=== PATIENT | male | born 1935 | race Caucasian/White ===

== ENCOUNTER 2016-11-02 07:53 | Inpatient (IN) | payer BC ==
--- NOTE | ~2016-11-02 | DS ---
Discharge Summary [facility] [address] [facility] [place]. [address] NAME: JESUS CRUZ : 33 STATUS : DIS IN PAT#: [id number] AGE: 81 ADM/REG DATE : 11/02/16 MR#: [id number] REPORT SERV DATE: 11/06/16 DICTATED BY: BENNIE SANTOS DATE: 11/05/16 REPORT STATUS : Draft TRANSCRIBED BY: MODL DATE: 11/05/16 ADMISSION DATE: 11/02/2016 DISCHARGE DATE: 11/05/2016 PROCEDURES DONE: 1. On 11/02/2016 CT of the brain without contrast, mild to moderate atrophy. Evidence for old deep white matter ischemic changes in both hemispheres, lesional burden moderate. No acute infarct or bleed seen. Atrophy involves the hippocampal and amygdalar region, and this could certainly be several changes as a precursor to Alzheimer's diagnosis. Prior cataract surgery bilateral. 2. On 11/02/2016, ultrasound renal status post left nephrectomy. Benign right renal cyst. Aorta and vena cava, and urinary bladder normal. 3. On 11/05/2016, chest x-ray portable. Pacemaker. Shallow inspiration. No acute cardiopulmonary abnormality. CONSULT: 1. Noel Jasso M.D. for Cardiology. 2. Florian Lyons M.D. for Electrophysiology. REASON FOR ADMISSION: Bradycardia. HOSPITAL COURSE: An 81-year-old white male with past medical history of atrial fibrillation on Eliquis, hypertension, history of left renal cell carcinoma status post left nephrectomy, metastasis in the bladder, presenting with bradycardia unknown duration. The patient was admitted for bradycardia with atrial flutter. The patient was noted to have a heart rate in the 40s. Dr. Jasso was consulted from Cardiology. Question if the patient will need a pacemaker. Dr. Jasso consulted Dr. Lyons from EP. Dr. Lyons put a pacemaker on 11/05/2016. The patient had no complications. At this time, the patient was cleared from EP point of view, and will be discharged at approximately 8:00 p.m. DISPOSITION: The patient feeling fine, no complaints. ACTIVITY: As tolerated. DIET: Cardiac. INSTRUCTIONS UPON DISCHARGE: 1. The patient is to follow up with Dr. Lyons within one week's time. 2. The patient is to follow up with Cardiology within two weeks' time. 3. The patient to follow up with primary care within two weeks' time. MEDICATIONS UPON DISCHARGE: 1. [place] 5/325 mg, one tablet p.o. q.4-6 hours, dispensed 20. 2. Lotensin/hydrochlorothiazide 20/25 mg p.o. daily. 3. Zocor 20 mg p.o. q.h.s. 4. Flomax 0.4 mg p.o. q.h.s. Discharge Summary [address] [address] NAME: JESUS CRUZ : 33 STATUS : DIS IN PAT#: [id number] AGE: 81 ADM/REG DATE : 11/02/16 MR#: [id number] REPORT SERV DATE: 11/06/16 DICTATED BY: BENNIE SANTOS DATE: 11/05/16 REPORT STATUS : Draft TRANSCRIBED BY: LUIS DATE: 11/05/16 5. Norvasc 5 mg p.o. daily. 6. Eliquis 2.5 mg p.o. b.i.d. DIAGNOSES UPON DISCHARGE: 1. Bradycardia with atrial flutter secondary to sick sinus syndrome. 2. Sick sinus syndrome. 3. Atrial fibrillation. 4. History of left renal cell carcinoma with bladder metastasis. CED/LUIS Bennie Santos MD / [id number] CC: MD Stuart Shrestha M.D.
--- NOTE | ~2016-11-02 | CN ---
Consultation Report [facility] [address] [place]. [address] NAME: JESUS CRUZ : 33 STATUS : ADM IN PAT#: [id number] AGE: 81 ADM/REG DATE : 11/02/16 MR#: [id number] REPORT SERV DATE: 11/05/16 DICTATED BY: KRYSTIN JASSO DATE: 11/03/16 REPORT STATUS : Draft TRANSCRIBED BY: MODL DATE: 11/03/16 CONSULTATION DATE OF CONSULTATION: 11/03/2016 REQUESTING PHYSICIAN: Bennie Cruz MD. CHIEF COMPLAINT: Bradycardia. HISTORY OF PRESENT ILLNESS: An 81-year-old man, followed by Dr. Menchaca, known to me from prior care, has history of coronary artery disease with 04/24 MPI demonstrating moderate jeopardy and 05/25 catheterization revealing only trivial coronary artery disease, 04/29 MPI revealing only small apical jeopardy and no symptoms of angina, minimally impaired LV systolic function with 05/25 LVEF of 40-45% and 04/29 echo estimating LVEF of 40%, treated hypertension, treated hypercholesterolemia, grade 1 carotid disease without stroke, trifascicular block, moderate mitral regurgitation by echo 04/29 and atrial fibrillation 03/30 of unknown duration with [id number] score of 4 and on Eliquis. The patient converted spontaneously to sinus rhythm 04/29. The patient was sent for a stress echocardiogram by his primary physician to [facility] hospitalist yesterday and was found to have ventricular rate in the low 40s in atrial fibrillation/flutter. He denies chest pain and near delmy syncope. Dr. Smith telephoned me and we agreed to have the patient admitted. Here, the patient has remained with a ventricular rate as low as 30 while asleep and in the 40s most of the time. He continues to deny chest pain and anginal symptoms as well as heart failure symptoms. PAST MEDICAL HISTORY: 1. CAD-trivial epicardial coronary disease by catheterization 05/25 and 04/29 MPI with small apical jeopardy. 2. Minimally-impaired LV systolic function by left ventriculography and echo 04/29. 3. Hypertension. 4. Hypercholesterolemia. 5. Carotid disease-04/24 duplex with grade 1 disease; has been followed by PMD. 6. Trifascicular block. 7. Atrial fibrillation-unknown duration 03/30 with [id number] score of 4 and on Eliquis; spontaneous conversion to sinus rhythm 04/29. 8. Mitral regurgitation-moderate by 04/29 echo with normal pulmonary artery pressure. 9. Benign prostatic hypertrophy. HOME MEDICATIONS: 1. Amlodipine 5 mg daily. 2. Benazepril/hydrochlorothiazide 10/25 daily. 3. Simvastatin 20 mg daily. Consultation Report [address] [place]. [address] NAME: JESUS CRUZ : 33 STATUS : ADM IN PAT#: [id number] AGE: 81 ADM/REG DATE : 11/02/16 MR#: [id number] REPORT SERV DATE: 11/05/16 DICTATED BY: KRYSTIN JASSO DATE: 11/03/16 REPORT STATUS : Draft TRANSCRIBED BY: LUIS DATE: 11/03/16 4. Tamsulosin 0.4 mg daily. 5. Eliquis 2.5 mg b.i.d. SOCIAL HISTORY: The patient is retired from [employer]. He is , with four children and one son suddenly while serving in the [employer] in [place] at age 20. He does not smoke. FAMILY HISTORY: No first-degree relatives with history of premature coronary artery disease. REVIEW OF SYSTEMS: Unremarkable. PHYSICAL EXAMINATION: GENERAL: No acute distress. VITAL SIGNS: Blood pressure 139/60, respirations 18, pulse 42 and regular, and temperature 98.2. LUNGS: Clear to auscultation and percussion. NECK: No JVD. No carotid bruit. CARDIAC: Bradycardic and regular. ABDOMEN: Benign. EXTREMITIES: Warm without edema. LABORATORY DATA: BUN and creatinine 29 and 1.93 yielding EGFR 36. White blood cell count 6700, hematocrit 41.5%, and platelets 128,000. EKG, atrial flutter with high-grade but variable block with ventricular rate 42, nonspecific IVCD with left axis deviation. Telemetry, atrial flutter with high-grade block, ventricular rate 32. ASSESSMENT AND PLAN: 1. Bradycardia and sick sinus syndrome-ventricular rate is now in the 40s, not on AV jordon blockers. He remains asymptomatic. Permanent pacemaker indicated and we will consult Dr. Mert Lyons. IV heparin now while holding Eliquis. 2. Atrial fibrillation/flutter-paroxysmal. Unknown duration. He has been anticoagulated. He will probably require transesophageal echocardiogram to rule out left atrial appendage thrombus prior to cardioversion at the time of pacemaker implantation. 3. CAD-trivial coronary artery disease and asymptomatic. 4. Decreased LV systolic function-mild impairment in LVEF. Asymptomatic. 5. Mitral regurgitation-moderate by echo. 6. Carotid artery disease-asymptomatic. 7. Chronic kidney disease 3-noted. Thank you for this consultation. Consultation Report [address] [place]. [address] NAME: JESUS CRUZ : 33 STATUS : ADM IN PAT#: [id number] AGE: 81 ADM/REG DATE : 11/02/16 MR#: [id number] REPORT SERV DATE: 11/05/16 DICTATED BY: KRYSTIN JASSO DATE: 11/03/16 REPORT STATUS : Draft TRANSCRIBED BY: LUIS DATE: 11/03/16 /LUIS Krystin Jasso M.D. / [id number] CC: MD Stuart Shrestha M.D.
--- NOTE | ~2016-11-02 | HP ---
History And Physical [place] [address] [place]. [address] NAME: JESUS CRUZ : 33 STATUS : ADM IN [facility]#: [id number] AGE: 81 ADM/REG DATE : 11/02/16 MR#: [id number] REPORT SERV DATE: 11/02/16 DICTATED BY: BENNIE SANTOS DATE: 11/02/16 REPORT STATUS : Draft TRANSCRIBED BY: MODBruce DATE: 11/02/16 DATE OF ADMISSION: 11/02/2016 CHIEF COMPLAINT: Bradycardia. HISTORY OF PRESENT ILLNESS: An 81-year-old white male with past medical history of atrial fibrillation on Eliquis, hypertension, history of left renal cell carcinoma status post left nephrectomy with metastasis to the bladder, presenting with bradycardia unknown duration. Apparently, the patient has been diagnosed with the left renal cell carcinoma approximately in fall. The patient underwent left nephrectomy. The patient did well during the procedure but found to be in atrial fibrillation. Dr. Jasso was consulted at that time and the patient was having atrial fibrillation but rate controlled, nonetheless, the patient was started on Eliquis. Unfortunately, the patient started having hematuria due to the renal cell carcinoma having metastasis to the bladder. The patient was supposed to undergo BCG treatment but the patient started having symptoms of shortness of breath. His primary care physician, Dr. Menchaca was working up the patient with a stress test to further elucidate the shortness of breath. During the time that the patient was having a stress test done, the patient was noted to be bradycardic. In addition, the patient also was in atrial fibrillation with a slow rate. Therefore, during his outpatient procedure, the patient was then admitted to the hospitalist service for further evaluation and treatment. The patient denies any other symptoms of fevers, chills, chest pain, shortness of breath, cough, or sputum. PAST MEDICAL HISTORY: As above. MEDICATIONS: The patient takes 1. Amlodipine 5 mg p.o. daily. 2. Eliquis 2.5 mg p.o. b.i.d. 3. Benazepril hydrochlorothiazide 20/25 p.o. daily. 4. Zocor 20 mg p.o. at bedtime. 5. Flomax 0.4 mg at bedtime. ALLERGIES: NO KNOWN DRUG ALLERGIES. SOCIAL HISTORY: Nonsmoker. Nondrinker. FAMILY HISTORY: Significant for coronary artery disease, cancer, and hypertension. REVIEW OF SYSTEMS: 10-point review of systems conducted which were negative except for above complaints. PHYSICAL EXAMINATION: VITAL SIGNS: Temperature of 97, pulse of 48, respiratory rate 18, blood pressure 165/97, and O2 saturation 98% on 2 L. LABS: Hemoglobin A1c 5.6. Ultrasound of the kidneys shows left nephrectomy with a right History And Physical [address] [address] NAME: JESUS CRUZ : 33 STATUS : ADM IN PAT#: [id number] AGE: 81 ADM/REG DATE : 11/02/16 MR#: [id number] REPORT SERV DATE: 11/02/16 DICTATED BY: BENNIE SANTOS. DATE: 11/02/16 REPORT STATUS : Draft TRANSCRIBED BY: LUIS DATE: 11/02/16 benign renal cyst. ASSESSMENT AND PLAN: 1. Bradycardia with slow atrial fibrillation. At this point in time, the patient has been advised to be bed rest. In addition, we will have Cardiology on consult. Questionable if the patient will need a pacemaker regarding the patient's bradycardia with a slow atrial fibrillation. 2. Atrial fibrillation. The patient currently is on Eliquis. If there is a hint that the patient will need a pacemaker, we will hold Eliquis and start the patient on heparin drip. 3. Hypertension. Continue the patient's Norvasc and benazepril. Hold if systolic blood pressure is less than 100. 4. Hypercholesterolemia. Continue Zocor. 5. 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 The patient will need to undergo future BCG treatment. At this time, we will hold treatment until we can further evaluate and treat problem #1. 6. DVT prophylaxis. We will start the patient on heparin drip. FBJ/MODL Bennie Santos MD / [id number] CC: MD Stuart Shrestha M.D.
--- NOTE | ~2016-11-02 | CN ---
Consultation Report [place] [id number] [place]. [address] NAME: JESUS MAHARAJ : 33 STATUS : ADM IN PAT#: [id number] AGE: 81 ADM/REG DATE : 11/02/16 MR#: [id number] REPORT SERV DATE: 11/05/16 DICTATED BY: FLORIAN LYONS DATE: 11/05/16 REPORT STATUS : Draft TRANSCRIBED BY: MODL DATE: 11/05/16 CONSULTATION DATE OF CONSULTATION: 11/05/2016 INDICATION: Bradycardia. HISTORY OF PRESENT ILLNESS: Mr. Maharaj is an 81-year-old man who was referred to [facility] by his primary care physician for a low heart rate. He was found to be in atrial fibrillation with a pulse in the 30s and 40s since admission. He is not on any rate-slowing medications. He is known to have a history of atrial fibrillation and atrial flutter. He states that, he was put on Eliquis about one month ago by Dr. Jasso. He denies missing any doses since that time. He has been taken off that here and has been on intravenous heparin. He reports fatigue and shortness of breath. No syncope. No chest pain. PAST MEDICAL HISTORY: 1. Non-significant coronary artery disease. 2. Congestive heart failure with ejection fraction of 40% in 04/2016. 3. Hypertension. 4. Hyperlipidemia. 5. Peripheral vascular disease. 6. History of trifascicular block. SOCIAL HISTORY: Nonsmoker. FAMILY HISTORY: Noncontributory. HOME MEDICATIONS: 1. Amlodipine 5 mg daily. 2. Eliquis 2.5 mg b.i.d. 3. Benazepril/hydrochlorothiazide 20/25 mg daily. 4. Zocor 20 mg daily. 5. Flomax 0.4 mg daily. ALLERGIES: NO KNOWN DRUG ALLERGIES. REVIEW OF SYSTEMS: A 10 system review is asked and is basically negative except for noted above in history of present illness. PHYSICAL EXAMINATION: VITAL SIGNS: Temperature 97.6, heart rate 63, blood pressure 179/70. GENERAL: Mr. Maharja is a well-developed man in no acute distress. HEENT: Negative. He is not dehydrated. There is no JVD in his neck. Consultation Report [facility] [address] [facility] [place]. [address] NAME: JESUS MAHARAJ : 33 STATUS : ADM IN PAT#: [id number] AGE: 81 ADM/REG DATE : 11/02/16 MR#: [id number] REPORT SERV DATE: 11/05/16 DICTATED BY: FLORIAN LYONS DATE: 11/05/16 REPORT STATUS : Draft TRANSCRIBED BY: LUIS DATE: 11/05/16 LUNGS: Clear. HEART: Tones are slow and irregular. No murmur. ABDOMEN: The abdominal exam is negative. He has good bowel sounds. EXTREMITIES: Does not show edema. NEUROLOGIC: He has normal speech. SKIN: Shows some bruising. No rash. LABORATORY DATA: White blood cell count 7, hematocrit 40, platelet count 136. INR 1.2. Sodium 140, potassium 3.9, BUN 31, creatinine 1.9. TSH 1.34. Liver function tests are normal. Electrocardiogram, this demonstrates atrial fibrillation with a heart rate in the 40s. This is from 11/03/2016. He has a left bundle branch block. QRS duration is 162 milliseconds. IMPRESSION: 1. Atrial fibrillation. 2. Bradycardia. 3. 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 4. Congestive heart failure with ejection fraction of 40%. PLAN: Mr. Maharaj would benefit from pacing in his heart rate into the 70s or above. Due to his left bundle branch block, significant need for ventricular pacing, trifascicular block, ejection fraction of 40%, [place] Heart Association class 3 symptoms, he would benefit from a biventricular pacemaker. We will also plan on cardioversion during the procedure. He will not need a HAO, because he has been appropriately dosed on low-dose Eliquis (due to age and creatinine) and has been on IV heparin since his admission here. He states that, he has not missed any Eliquis doses in the last month. I discussed this thoroughly with him. He agrees with this plan. [facility]/LUIS Florian Lyons M.D. / [id number] CC: MD Stuart Shrestha M.D. Alexander Stratienko, M.D.
[~2016-11-02 07:53] MED LIST: ASAB PO; CRESTOR40 MG PO; DSS PO; ELIQUIS 2.5 MG2.5 MG PO; ELIQUIS 5 MG TAB5 MG PO; FLOMAX4 PO; LOTENSIN HCT1 TA3 PO; NORV5 PO; PCET PO; PLAVIX PO; ZOCOR20 PO
[2016-11-02 17:49] LABS: BASOPHILS 0.3 %; BASOPHILS ABSOLUTE 0.02 10/3/uL (0.0-0.16); EOSINOPHILS 3.2 %; EOSINOPHILS ABSOLUTE 0.21 10/3/uL (0.0-0.53); HEMATOCRIT 41.9 % (40.0-51.0); HEMOGLOBIN 14.3 g/dL (13.6-17.8); IMMATURE GRANULOCYTES 0.3 %; IMMATURE GRANULOCYTES ABSOLUTE 0.02 10/3/uL (0.0-0.11); LYMPHOCYTES 21.4 %; LYMPHOCYTES ABSOLUTE 1.39 10/3/uL (0.67-4.30); MEAN CORPUS HGB CONC 34.1 g/dL (32.0-36.0); MEAN CORPUSCULAR HEMOGLOB 31.2 pg (26.0-34.0); MEAN CORPUSCULAR VOLUME 91.5 fL (80-100); MEAN PLATELET VOLUME 11.7 fL (9.2-13.0); MONOCYTES 4.8 %; MONOCYTES ABSOLUTE 0.31 10/3/uL (0.21-1.20); NEUTROPHILS ABSOLUTE 4.56 10/3/uL (2.02-8.40); RBC DISTRIBUTION WIDTH 14.2 % (12.0-16.0); RED CELL COUNT 4.58 10/6/uL (4.7-6.1); WHITE BLOOD CELLS 6.5 10/3/uL (4.5-10.5)
[2016-11-02 17:50] LABS: MANUAL DIFF NO %; PLATELET COUNT 139 10/3/uL (150-400)
[2016-11-02 18:12] LABS: ALBUMIN 3.7 G/DL (3.5-5.0); ALKALINE PHOSPHATASE 66 U/L (45-117); BUN (BLOOD UREA NITROGEN) 24 MG/DL (6-23); CALCIUM, SERUM 8.8 MG/DL (8.5-10.4); CHLORIDE, SERUM 107 MMOL/L (96-112); CO2 (CARBON DIOXIDE) 30 MMOL/L (24-34); CREATININE 1.93 MG/DL (0.70-1.30); GFR AFRICAN AMERICAN 36 ML/MIN (>=60); GFR NON AFRICAN AMERICAN 31 ML/MIN (>=60); GLUCOSE, SERUM 106 MG/DL (60-99); PHOSPHORUS, SERUM 2.3 MG/DL (2.5-4.5); POTASSIUM, SERUM 3.9 MMOL/L (3.5-5.3); SGOT(AST) 19 U/L (5-40); SGPT(ALT) 23 U/L (5-65); SODIUM, SERUM 145 MMOL/L (135-148); TOTAL BILIRUBIN 1.2 MG/DL (0-1.2); TOTAL PROTEIN 7.2 G/DL (6.0-8.5)
[2016-11-02 18:14] LABS: A/G RATIO 1.1 (0.7-1.9); GLOBULIN 3.5 G/DL (2.5-4.1)
[2016-11-02 18:19] LABS: INTERNATIONAL NORMAL RATI 1.2 UNITS (-); PARTIAL THROMBO TIME 30.5 SEC (22.5-37.2); PROTIME (NOT ORD) 14.8 SEC (12.0-14.5)
[2016-11-03 04:18] LABS: BASOPHILS 0.6 %; BASOPHILS ABSOLUTE 0.04 10/3/uL (0.0-0.16); EOSINOPHILS 3.9 %; EOSINOPHILS ABSOLUTE 0.26 10/3/uL (0.0-0.53); HEMATOCRIT 41.5 % (40.0-51.0); HEMOGLOBIN 13.9 g/dL (13.6-17.8); IMMATURE GRANULOCYTES 0.3 %; IMMATURE GRANULOCYTES ABSOLUTE 0.02 10/3/uL (0.0-0.11); LYMPHOCYTES 24.2 %; LYMPHOCYTES ABSOLUTE 1.62 10/3/uL (0.67-4.30); MEAN CORPUS HGB CONC 33.5 g/dL (32.0-36.0); MEAN CORPUSCULAR VOLUME 92.4 fL (80-100); MEAN PLATELET VOLUME 12.2 fL (9.2-13.0); MONOCYTES 6.3 %; MONOCYTES ABSOLUTE 0.42 10/3/uL (0.21-1.20); NEUTROPHILS 64.7 %; NEUTROPHILS ABSOLUTE 4.34 10/3/uL (2.02-8.40); PLATELET COUNT 128 10/3/uL (150-400); RBC DISTRIBUTION WIDTH 14.1 % (12.0-16.0); RED CELL COUNT 4.49 10/6/uL (4.7-6.1); WHITE BLOOD CELLS 6.7 10/3/uL (4.5-10.5)
[2016-11-03 04:19] LABS: MANUAL DIFF NO %
[2016-11-03 04:37] LABS: ALBUMIN 3.5 G/DL (3.5-5.0); ALKALINE PHOSPHATASE 68 U/L (45-117); CALCIUM, SERUM 8.3 MG/DL (8.5-10.4); CHLORIDE, SERUM 106 MMOL/L (96-112); CO2 (CARBON DIOXIDE) 27 MMOL/L (24-34); CREATININE 1.93 MG/DL (0.70-1.30); GFR AFRICAN AMERICAN 36 ML/MIN (>=60); GFR NON AFRICAN AMERICAN 31 ML/MIN (>=60); GLOBULIN 3.5 G/DL (2.5-4.1); GLUCOSE, SERUM 107 MG/DL (60-99); POTASSIUM, SERUM 4.1 MMOL/L (3.5-5.3); SGOT(AST) 18 U/L (5-40); SGPT(ALT) 19 U/L (5-65); SODIUM, SERUM 142 MMOL/L (135-148); TOTAL BILIRUBIN 0.9 MG/DL (0-1.2)
[2016-11-03 04:42] LABS: BUN (BLOOD UREA NITROGEN) 29 MG/DL (6-23); PHOSPHORUS, SERUM 3.3 MG/DL (2.5-4.5)
[2016-11-04 06:58] LABS: BASOPHILS 0.3 %; BASOPHILS ABSOLUTE 0.02 10/3/uL (0.0-0.16); EOSINOPHILS 4.3 %; EOSINOPHILS ABSOLUTE 0.31 10/3/uL (0.0-0.53); HEMATOCRIT 39.2 % (40.0-51.0); HEMOGLOBIN 13.5 g/dL (13.6-17.8); IMMATURE GRANULOCYTES 0.1 %; IMMATURE GRANULOCYTES ABSOLUTE 0.01 10/3/uL (0.0-0.11); LYMPHOCYTES 18.5 %; LYMPHOCYTES ABSOLUTE 1.33 10/3/uL (0.67-4.30); MEAN CORPUS HGB CONC 34.4 g/dL (32.0-36.0); MEAN CORPUSCULAR HEMOGLOB 31.5 pg (26.0-34.0); MEAN CORPUSCULAR VOLUME 91.4 fL (80-100); MEAN PLATELET VOLUME 12.1 fL (9.2-13.0); MONOCYTES 6.5 %; MONOCYTES ABSOLUTE 0.47 10/3/uL (0.21-1.20); NEUTROPHILS 70.3 %; NEUTROPHILS ABSOLUTE 5.05 10/3/uL (2.02-8.40); PLATELET COUNT 133 10/3/uL (150-400); RBC DISTRIBUTION WIDTH 14.4 % (12.0-16.0); RED CELL COUNT 4.29 10/6/uL (4.7-6.1); WHITE BLOOD CELLS 7.2 10/3/uL (4.5-10.5)
[2016-11-04 07:04] LABS: ALBUMIN 3.1 G/DL (3.5-5.0); BUN (BLOOD UREA NITROGEN) 28 MG/DL (6-23); CALCIUM, SERUM 8.2 MG/DL (8.5-10.4); CHLORIDE, SERUM 110 MMOL/L (96-112); CO2 (CARBON DIOXIDE) 24 MMOL/L (24-34); GFR AFRICAN AMERICAN 39 ML/MIN (>=60); GFR NON AFRICAN AMERICAN 34 ML/MIN (>=60); GLUCOSE, SERUM 103 MG/DL (60-99); POTASSIUM, SERUM 3.7 MMOL/L (3.5-5.3); SODIUM, SERUM 143 MMOL/L (135-148)
[2016-11-04 07:07] LABS: MANUAL DIFF NO %
[2016-11-05 03:04] LABS: BASOPHILS 0.6 %; BASOPHILS ABSOLUTE 0.04 10/3/uL (0.0-0.16); EOSINOPHILS 4.4 %; EOSINOPHILS ABSOLUTE 0.31 10/3/uL (0.0-0.53); HEMATOCRIT 40.2 % (40.0-51.0); HEMOGLOBIN 13.2 g/dL (13.6-17.8); IMMATURE GRANULOCYTES 0.3 %; IMMATURE GRANULOCYTES ABSOLUTE 0.02 10/3/uL (0.0-0.11); LYMPHOCYTES 20.8 %; LYMPHOCYTES ABSOLUTE 1.47 10/3/uL (0.67-4.30); MANUAL DIFF NO %; MEAN CORPUS HGB CONC 32.8 g/dL (32.0-36.0); MEAN CORPUSCULAR HEMOGLOB 30.3 pg (26.0-34.0); MEAN CORPUSCULAR VOLUME 92.4 fL (80-100); MEAN PLATELET VOLUME 12.4 fL (9.2-13.0); MONOCYTES 6.2 %; MONOCYTES ABSOLUTE 0.44 10/3/uL (0.21-1.20); NEUTROPHILS 67.7 %; NEUTROPHILS ABSOLUTE 4.78 10/3/uL (2.02-8.40); PLATELET COUNT 136 10/3/uL (150-400); RBC DISTRIBUTION WIDTH 13.9 % (12.0-16.0); RED CELL COUNT 4.35 10/6/uL (4.7-6.1); WHITE BLOOD CELLS 7.1 10/3/uL (4.5-10.5)
[2016-11-05 04:27] LABS: ALBUMIN 3.1 G/DL (3.5-5.0); BUN (BLOOD UREA NITROGEN) 31 MG/DL (6-23); CALCIUM, SERUM 8.7 MG/DL (8.5-10.4); CHLORIDE, SERUM 106 MMOL/L (96-112); CO2 (CARBON DIOXIDE) 28 MMOL/L (24-34); CREATININE 1.89 MG/DL (0.70-1.30); GFR AFRICAN AMERICAN 37 ML/MIN (>=60); GFR NON AFRICAN AMERICAN 32 ML/MIN (>=60); GLUCOSE, SERUM 114 MG/DL (60-99); PHOSPHORUS, SERUM 3.6 MG/DL (2.5-4.5); POTASSIUM, SERUM 3.9 MMOL/L (3.5-5.3); SODIUM, SERUM 140 MMOL/L (135-148)
[2017-02-18] MEDS ORDERED: FLOMAX4 PO (15:14)
[2017-02-19] MEDS ORDERED: ASAB PO (08:24)
[2017-03-27] MEDS ORDERED: ULTRAM50 PO (08:50)
[2017-03-27] MEDS ORDERED: LEVAQUIN750 MG PO (08:50)
[2017-03-27] MEDS ORDERED: DSS PO (08:53)
== END 2016-11-05 20:32 | disposition home or self-care (01) | DRG 243 ==
LOC: MRI 07:53 → 7NO 11:59
PROVIDERS: Hospitalist
PROC: 0JH607Z Insertion of Cardiac Resynchronization Pacemaker Pulse Generator into Chest Subcutaneous Tissue and Fascia, Open Approach (ICD-10-PCS; principal; 2016-11-05)
PROC: 02HK3JZ Insertion of Pacemaker Lead into Right Ventricle, Percutaneous Approach (ICD-10-PCS; 2016-11-05)
PROC: 02H63JZ Insertion of Pacemaker Lead into Right Atrium, Percutaneous Approach (ICD-10-PCS; 2016-11-05)
PROC: 02H43JZ Insertion of Pacemaker Lead into Coronary Vein, Percutaneous Approach (ICD-10-PCS; 2016-11-05)
DX: I48.4 Atypical atrial flutter (principal); I50.22 Chronic systolic (congestive) heart failure; I45.3 Trifascicular block; I13.0 Hypertensive heart and chronic kidney disease with heart failure and stage 1 through stage 4 chronic kidney disease, or unspecified chronic kidney disease; I25.10 Atherosclerotic heart disease of native coronary artery without angina pectoris; I34.0 Nonrheumatic mitral (valve) insufficiency; E78.00 Pure hypercholesterolemia, unspecified; I48.0 Paroxysmal atrial fibrillation; N18.3 Chronic kidney disease, stage 3 (moderate); I49.5 Sick sinus syndrome; Z85.528 Personal history of other malignant neoplasm of kidney; Z90.5 Acquired absence of kidney
CPT/HCPCS: 33208; 33225; 70551; 71010; 76775; 78451; 80053; 80069; 83735; 84100; 84443; 85025; 85610; 85730; 92960; 93005; A9270-GY; A9502; C1769; C1887; C1892; C1898; C1900; C2621; J0690; J2370; J3010; Q9967

== ENCOUNTER 2016-11-10 18:15 | Inpatient (IN) | payer BC ==
--- NOTE | ~2016-11-10 | DS ---
Discharge Summary [facility] [address] [place]. [address] NAME: JESUS CRUZ : 33 STATUS : DIS IN PAT#: [id number] AGE: 81 ADM/REG DATE : 11/10/16 MR#: [id number] REPORT SERV DATE: 11/14/16 DICTATED BY: CHARLES COX II DATE: 11/13/16 REPORT STATUS : Draft TRANSCRIBED BY: MODL DATE: 11/13/16 ADMISSION DATE: 11/10/2016 DISCHARGE DATE: 11/13/2016 DISCHARGE DIAGNOSES: 1. Pseudomonas urinary tract infection. 2. Fever. 3. 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 4. Acute kidney injury on chronic kidney disease, stage III, baseline 1.8. 5. Atrial fibrillation, status post pacemaker, on Eliquis. 6. Chronic systolic congestive heart failure with ejection fraction of 40%. CONSULTS: Dr. Bejarano and Dr. Russell of Urology. BRIEF HISTORY OF PRESENT ILLNESS: The patient is an 81-year-old male with the above history, who presented to [facility] due to fever and evidence of UTI. For detailed history and physical examination, please see Dr. Pineda's note from 11/10/2016. HOSPITAL COURSE: After admission, the patient was placed on vancomycin and Rocephin. Initial urinalysis showed large leukocyte esterase and greater than 182 white blood cells. AFB culture showed no acid-fast bacilli. Urine culture returned positive for Pseudomonas sensitive to fluoroquinolones. So, the patient was taken off broad-spectrum antibiotics, and Dr. Russell recommended two weeks of Cipro and follow up with him in clinic for further BCG treatment. The patient's white count was only mildly elevated and currently 11. He has not had any further fevers. He seems to be doing well and clinically stable for discharge. DISCHARGE MEDICATIONS: 1. Norvasc 5 mg p.o. daily. 2. Eliquis 2.5 mg p.o. b.i.d. 3. Zocor 20 mg p.o. at bedtime. 4. Lotensin 1 tablet p.o. daily. 5. Tylenol p.r.n. 6. Cipro 500 mg p.o. b.i.d. DISCHARGE INSTRUCTIONS: The patient will follow Dr. Russell in two weeks. ILA/LUIS Charles Cox II, MD / [id number] CC: Discharge Summary [address] [address] NAME: JESUS CRUZ : 33 STATUS : DIS IN PAT#: [id number] AGE: 81 ADM/REG DATE : 11/10/16 MR#: [id number] REPORT SERV DATE: 11/14/16 DICTATED BY: CHARLES COX II DATE: 11/13/16 REPORT STATUS : Draft TRANSCRIBED BY: LUIS DATE: 11/13/16 MD Stuart Malik M.D.
--- NOTE | ~2016-11-10 | HP ---
History And Physical [place] [address] [facility] [place]. [address] NAME: JESUS CRUZ : 33 STATUS : ADM IN PAT#: [id number] AGE: 81 ADM/REG DATE : 11/10/16 MR#: [id number] REPORT SERV DATE: 11/11/16 DICTATED BY: MAME KINGSLEY DATE: 11/10/16 REPORT STATUS : Draft TRANSCRIBED BY: MODL DATE: 11/10/16 DATE OF ADMISSION: 11/10/2016 CHIEF COMPLAINT: An 81-year-old male with recent treatment for bladder cancer, now presenting with severe urinary tract infection and fevers. HISTORY OF PRESENT ILLNESS: The patient's history was obtained through careful interview with the patient and daughter coupled with review of [facility] and [facility] medical records. The patient has had an eventful October 2016, he had to be evaluated for a pacemaker and then had one placed on 11/05/2016 under the care of Dr. Florian Lyons and seemed to recover well from that. But he has known recurrence of bladder cancer and so presented on 11/08/2016 for a BCG treatment under the care of Dr. Russell, urologist. He seemed to tolerate this procedure quite well, but then on the day of admission developed severe headaches with severe fevers and chills as well. He describes the headache as a new onset, he feels as if his head is "as big as a balloon" with a fullness quality discomfort, 6/10 severity. He also developed some soreness in his chest, but no shortness of breath. He has had fevers, chills, rigors. No lightheadedness. No dysuria, but he has had slight urinary frequency today. No hematuria. No nausea or vomiting. No diarrhea. No rash. No palpitations. REVIEW OF SYSTEMS: Otherwise, a 14-point review of systems was obtained and was negative. PAST MEDICAL HISTORY: 1. Urothelial cancer status post right nephroureterectomy in June 2016, now with BCG treatment under the care of Dr. Russell on 11/08/2016. 2. Atrial fibrillation, on chronic Eliquis. 3. Pacemaker placement. 4. Hypertension. 5. Systolic congestive heart failure, but with negative catheterization of the heart reported in May 2011 and in April 2016, followed by Dr. Noel Jasso. 6. Elevated cholesterol. 7. Moderate mitral regurgitation. 8. Benign prostatic hypertrophy. 9. Ureteral stent placement. 10.Chronic kidney disease, stage 3. Baseline creatinine of about 1.8. History And Physical [address] [place]. [address] NAME: JESSU CRUZ : 33 STATUS : ADM IN [facility]#: [id number] AGE: 81 ADM/REG DATE : 11/10/16 MR#: [id number] REPORT SERV DATE: 11/11/16 DICTATED BY: MAME KINGSLEY DATE: 11/10/16 REPORT STATUS : Draft TRANSCRIBED BY: LUIS DATE: 11/10/16 PAST SURGICAL HISTORY: 1. Right nephroureterectomy. 2. Pacemaker. 3. TURP in the . 4. Bilateral inguinal hernia repair. ALLERGIES: NO KNOWN DRUG ALLERGIES. SOCIAL HISTORY: Quit smoking in 1961. No alcohol abuse. Lives alone in [place], [place], but a grandson lives on the same property. He is a for two and half years now. He is retired working for [employer]. He has total of four children. FAMILY HISTORY: Significant for heart disease and cancer. Had a son while serving in the [employer] in [place] when he was 20 years old. CURRENT MEDICATIONS: 1. Tylenol. 2. Norvasc. 3. Eliquis 2.5 mg p.o. b.i.d. 4. Benazepril/hydrochlorothiazide 20/25 mg p.o. daily. 5. Zocor 20 mg p.o. daily. PHYSICAL EXAMINATION: VITAL SIGNS: Temperature 101.0, pulse 71, blood pressure 121/56, respiratory rate 18, and O2 saturation 96% on room air. GENERAL: A pleasant, cooperative male. No evidence of acute distress. HEENT: Pupils equal, round, and reactive to light. No conjunctival pallor. No scleral icterus. Nares are patent. Oropharynx is clear of obstruction. Dry mucous membranes. NECK: Trachea midline. No thyromegaly. LYMPH: No cervical lymphadenopathy. No supraclavicular lymphadenopathy. No appreciable inguinal lymphadenopathy. RESPIRATORY: The patient does have scattered rhonchi on examination. Probable crackles at the base of lungs, suggestive of atelectasis changes. No wheezes. No rales. Nonlabored respiratory effort. CARDIOVASCULAR: Regular rate and rhythm. No murmurs, rubs, or gallops. Paced on the monitor. No extremity edema. ABDOMEN: Completely soft. No suprapubic abdominal tenderness. No flank tenderness. No hepatosplenomegaly. DERMATOLOGICAL: Warm and dry extremities. No pallor. No cyanosis. PSYCHIATRIC: Normal affect. Good mood. Alert and oriented x3. LABORATORY DATA: Urinalysis shows 350 white blood cells, 29 red blood cells, large leukocyte esterase. White blood cell count 15.6, hemoglobin 14, hematocrit 42, and platelets 109. Sodium 135, potassium 3.9, chloride 102, bicarb 25, BUN 33, creatinine 2.05, and glucose History And Physical [address] [address] NAME: JESUS CRUZ : 33 STATUS : ADM IN [facility]#: [id number] AGE: 81 ADM/REG DATE : 11/10/16 MR#: [id number] REPORT SERV DATE: 11/11/16 DICTATED BY: MAME KINGSLEY DATE: 11/10/16 REPORT STATUS : Draft TRANSCRIBED BY: LUIS DATE: 11/10/16 142. AST 19, ALT 18, alkaline phosphatase 79, and total bilirubin 1.3. STUDIES: 1. EKG by my own evaluation shows atrial pacing, right bundle-branch block. 2. Review of chest x-ray on 11/05/2016 was negative. 3. Review of MRI of the brain on 11/02/2016 was negative. ASSESSMENT AND PLAN: 1. Severe urinary tract infection with fevers following a BCG treatment on the bladder cancer on 11/08/2016. Check urine culture. Place on IV Rocephin and IV vancomycin for now. 2. Bladder urothelial cancer. Consult Dr. Russell, urologist. 3. Acute kidney injury on chronic kidney disease, stage 3. Place on IV fluids. Hold hydrochlorothiazide. 4. Atrial fibrillation status post pacemaker placement, on Eliquis. 5. Chronic systolic congestive heart failure, ejection fraction 40%, and history of negative catheterization of the heart for significant coronary artery disease. KPL/MODL Mame Kingsley M.D. / [id number] CC: Dameon Monroy M.D. Jeffrey K. Mullins, MD Alexander Stratienko, M.D.
--- NOTE | ~2016-11-10 | CN ---
Consultation Report [place] [id number] [facility] [place]. [address] NAME: JESUS MAHARAJ : 31 STATUS : ADM IN PAT#: [id number] AGE: 81 ADM/REG DATE : 11/10/16 MR#: [id number] REPORT SERV DATE: 11/11/16 DICTATED BY: Adryan LEA DATE: 11/11/16 REPORT STATUS : Draft TRANSCRIBED BY: MODL DATE: 11/11/16 DATE OF CONSULTATION: 11/11/2016 CHIEF COMPLAINT: Fever and chills, possible BCG reaction. HISTORY OF PRESENT ILLNESS: Mr. Maharaj is an 81-year-old white male who is a patient of Dr. Rob Russell, who was seen in the ER today with complaints of fever and chills, headache, and general malaise. He did not have any hypotension and did not appear severely ill. 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 He was given BCG intravesically two to three days ago and thus the concern for a BCG reaction. PAST MEDICAL HISTORY: 1. 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 2. Atrial fibrillation, on Eliquis. 3. History of pacemaker. 4. Hypertension. 5. Systolic congestive heart failure. 6. Hypercholesterolemia. 7. BPH. 8. CKD. Baseline creatinine 1.8. 9. Mitral regurg. PAST SURGICAL HISTORY: 1. Remote TURP. 2. Pacemaker placement. 3. Bilateral inguinal hernia repair. 4. Left laparoscopic nephroureterectomy in 06/2016. 5. TURBT in 09/2016. HOME MEDICATIONS: Acetaminophen, amlodipine, Eliquis, Lotensin, and Zocor. ALLERGIES: NO KNOWN DRUG ALLERGIES. SOCIAL HISTORY: Previous smoker, quit over 50 years ago. Denies current alcohol use. FAMILY HISTORY: Negative for urologic disease. REVIEW OF SYSTEMS: Full 12-point review of systems is negative except as noted above. PHYSICAL EXAMINATION: GENERAL: Alert-appearing 81-year-old white male. VITAL SIGNS: Afebrile currently with normal vital signs; T-max 101.2, blood pressure Consultation Report [place] [id number] [facility] [place]. [address] NAME: JESUS MAHARAJ : 31 STATUS : ADM IN PAT#: [id number] AGE: 81 ADM/REG DATE : 11/10/16 MR#: [id number] REPORT SERV DATE: 11/11/16 DICTATED BY: Adryan LEA DATE: 11/11/16 REPORT STATUS : Draft TRANSCRIBED BY: MODL DATE: 11/11/16 120/60, respiratory rate 18. HEAD: Normocephalic, atraumatic. The patient is ambulatory. CHEST: No respiratory distress. HEART: Regular rate and rhythm. ABDOMEN: Flat, nontender, nondistended. No CVA tenderness. No suprapubic distention. : Normal-appearing external genitalia. No peripheral edema. PERTINENT LABORATORY: Urinalysis, inflammatory with white cells, red cells, and large leukocyte esterase. White count 15,600. Creatinine 2.05. IMPRESSION: 1. Fever, status post BCG. 2. Inflammatory urine. 3. History of transitional cell carcinoma of the left kidney and bladder. 4. Chronic kidney disease. PLAN: He has fever and inflammatory urine. He could well have a bacterial infection following BCG, could also have a grade 3 or so BCG reaction. He is currently hospitalized and whether that needs to continue depends upon his clinical course. I am going to go ahead and start INH 300 mg daily, awaiting cultures, and we will proceed as indicated depending upon his clinical course. Dr. Russell should be back in the morning. OGD/LUIS Adryan Lea M.D. / [id number] CC: Dameon Monroy M.D.
[2016-11-10 19:48] LABS: ASCORBIC ACID (UR NOT ORDER) NEG (NEG); BILIRUBIN, URINE NEGATIVE (NEG); ER URINALYSIS TAT 0 Hrs 11 Mins; KETONE, URINE NEGATIVE (NEG); LEUKOCYTE ESTERASE(NOT OR LARGE (NEG); NITRITE (URINE) NEG (NEG)
[2016-11-10 19:49] LABS: BASOPHILS 0.1 %; BASOPHILS ABSOLUTE 0.02 10/3/uL (0.0-0.16); EOSINOPHILS 1.4 %; EOSINOPHILS ABSOLUTE 0.22 10/3/uL (0.0-0.53); HEMATOCRIT 41.6 % (40.0-51.0); HEMOGLOBIN 13.9 g/dL (13.6-17.8); IMMATURE GRANULOCYTES 0.3 %; IMMATURE GRANULOCYTES ABSOLUTE 0.05 10/3/uL (0.0-0.11); LYMPHOCYTES 4.5 %; LYMPHOCYTES ABSOLUTE 0.71 10/3/uL (0.67-4.30); MEAN CORPUS HGB CONC 33.4 g/dL (32.0-36.0); MEAN CORPUSCULAR HEMOGLOB 31.4 pg (26.0-34.0); MEAN CORPUSCULAR VOLUME 94.1 fL (80-100); MEAN PLATELET VOLUME 12.4 fL (9.2-13.0); MONOCYTES ABSOLUTE 0.94 10/3/uL (0.21-1.20); NEUTROPHILS 87.7 %; NEUTROPHILS ABSOLUTE 13.67 10/3/uL (2.02-8.40); PLATELET COUNT 109 10/3/uL (150-400); RBC DISTRIBUTION WIDTH 13.8 % (12.0-16.0); RED CELL COUNT 4.42 10/6/uL (4.7-6.1)
[2016-11-10 19:51] LABS: WHITE BLOOD CELLS 15.6 10/3/uL (4.5-10.5)
[2016-11-10 19:52] LABS: MANUAL DIFF NO %
[2016-11-10 20:09] LABS: A/G RATIO 0.9 (0.7-1.9); ALBUMIN 3.4 G/DL (3.5-5.0); ALKALINE PHOSPHATASE 79 U/L (45-117); BUN (BLOOD UREA NITROGEN) 33 MG/DL (6-23); CALCIUM, SERUM 8.9 MG/DL (8.5-10.4); CHLORIDE, SERUM 102 MMOL/L (96-112); CO2 (CARBON DIOXIDE) 25 MMOL/L (24-34); CREATININE 2.05 MG/DL (0.70-1.30); GFR AFRICAN AMERICAN 34 ML/MIN (>=60); GFR NON AFRICAN AMERICAN 29 ML/MIN (>=60); GLOBULIN 3.9 G/DL (2.5-4.1); GLUCOSE, SERUM 142 MG/DL (60-99); POTASSIUM, SERUM 3.9 MMOL/L (3.5-5.3); SGOT(AST) 19 U/L (5-40); SGPT(ALT) 18 U/L (5-65); SODIUM, SERUM 135 MMOL/L (135-148); TOTAL BILIRUBIN 1.3 MG/DL (0-1.2); TOTAL PROTEIN 7.3 G/DL (6.0-8.5)
[2016-11-10] MEDS ORDERED: LOTENSIN HCT1 TA3 PO (21:28)
[2016-11-10] MEDS ORDERED: ELIQUIS 2.5 MG2.5 MG PO (21:28)
[2016-11-10] MEDS ORDERED: ZOCOR20 PO (21:28)
[2016-11-10] MEDS ORDERED: NORV5 PO (21:28)
[2016-11-10] MEDS ORDERED: FLOMAX4 PO (21:28)
[2016-11-10] MEDS ORDERED: ACET500CAP PO (21:48)
[2016-11-11 05:28] LABS: BASOPHILS 0.1 %; BASOPHILS ABSOLUTE 0.02 10/3/uL (0.0-0.16); EOSINOPHILS 1.6 %; EOSINOPHILS ABSOLUTE 0.23 10/3/uL (0.0-0.53); HEMATOCRIT 40.4 % (40.0-51.0); HEMOGLOBIN 13.5 g/dL (13.6-17.8); IMMATURE GRANULOCYTES 0.3 %; IMMATURE GRANULOCYTES ABSOLUTE 0.05 10/3/uL (0.0-0.11); LYMPHOCYTES 7.9 %; LYMPHOCYTES ABSOLUTE 1.14 10/3/uL (0.67-4.30); MANUAL DIFF NO %; MEAN CORPUS HGB CONC 33.4 g/dL (32.0-36.0); MEAN CORPUSCULAR HEMOGLOB 31.3 pg (26.0-34.0); MEAN CORPUSCULAR VOLUME 93.7 fL (80-100); MEAN PLATELET VOLUME 11.6 fL (9.2-13.0); MONOCYTES 7.3 %; MONOCYTES ABSOLUTE 1.05 10/3/uL (0.21-1.20); NEUTROPHILS 82.8 %; NEUTROPHILS ABSOLUTE 11.96 10/3/uL (2.02-8.40); PLATELET COUNT 104 10/3/uL (150-400); RBC DISTRIBUTION WIDTH 13.7 % (12.0-16.0); RED CELL COUNT 4.31 10/6/uL (4.7-6.1); WHITE BLOOD CELLS 14.5 10/3/uL (4.5-10.5)
[2016-11-11 05:33] LABS: INTERNATIONAL NORMAL RATI 1.3 UNITS (-); PROTIME (NOT ORD) 16.3 SEC (12.0-14.5)
[2016-11-11 05:50] LABS: A/G RATIO 0.9 (0.7-1.9); ALKALINE PHOSPHATASE 68 U/L (45-117); BUN (BLOOD UREA NITROGEN) 31 MG/DL (6-23); CALCIUM, SERUM 8.6 MG/DL (8.5-10.4); CHLORIDE, SERUM 107 MMOL/L (96-112); CO2 (CARBON DIOXIDE) 24 MMOL/L (24-34); CPK 47 U/L (0-200); CREATININE 1.85 MG/DL (0.70-1.30); GFR AFRICAN AMERICAN 38 ML/MIN (>=60); GFR NON AFRICAN AMERICAN 33 ML/MIN (>=60); GLOBULIN 3.5 G/DL (2.5-4.1); GLUCOSE, SERUM 121 MG/DL (60-99); POTASSIUM, SERUM 4.1 MMOL/L (3.5-5.3); SGOT(AST) 15 U/L (5-40); SGPT(ALT) 14 U/L (5-65); SODIUM, SERUM 140 MMOL/L (135-148); TOTAL BILIRUBIN 1.1 MG/DL (0-1.2); TOTAL PROTEIN 6.5 G/DL (6.0-8.5); TROPONIN I 0.03 NG/ML (<0.05)
[2016-11-11 05:56] LABS: CK-MB 1.1 NG/ML; ULTRASENSITIVE TSH 0.653 MCIU/ML (0.358-3.740)
[2016-11-11 15:05] LABS: CREATININE, URINE 99.6 MG/DL
[2016-11-12 05:57] LABS: BASOPHILS 0.1 %; BASOPHILS ABSOLUTE 0.02 10/3/uL (0.0-0.16); EOSINOPHILS 1.4 %; EOSINOPHILS ABSOLUTE 0.19 10/3/uL (0.0-0.53); HEMATOCRIT 39.8 % (40.0-51.0); HEMOGLOBIN 13.3 g/dL (13.6-17.8); IMMATURE GRANULOCYTES 0.2 %; IMMATURE GRANULOCYTES ABSOLUTE 0.03 10/3/uL (0.0-0.11); LYMPHOCYTES 9.3 %; LYMPHOCYTES ABSOLUTE 1.24 10/3/uL (0.67-4.30); MEAN CORPUS HGB CONC 33.4 g/dL (32.0-36.0); MEAN CORPUSCULAR HEMOGLOB 31.1 pg (26.0-34.0); MEAN CORPUSCULAR VOLUME 93.2 fL (80-100); MEAN PLATELET VOLUME 12.1 fL (9.2-13.0); MONOCYTES 6.2 %; MONOCYTES ABSOLUTE 0.83 10/3/uL (0.21-1.20); NEUTROPHILS 82.8 %; NEUTROPHILS ABSOLUTE 11.04 10/3/uL (2.02-8.40); PLATELET COUNT 114 10/3/uL (150-400); RBC DISTRIBUTION WIDTH 14.1 % (12.0-16.0); RED CELL COUNT 4.27 10/6/uL (4.7-6.1); WHITE BLOOD CELLS 13.4 10/3/uL (4.5-10.5)
[2016-11-12 06:01] LABS: MANUAL DIFF NO %
[2016-11-12 06:09] LABS: ALBUMIN 2.9 G/DL (3.5-5.0); BUN (BLOOD UREA NITROGEN) 31 MG/DL (6-23); CALCIUM, SERUM 8.4 MG/DL (8.5-10.4); CHLORIDE, SERUM 109 MMOL/L (96-112); CO2 (CARBON DIOXIDE) 25 MMOL/L (24-34); CREATININE 1.87 MG/DL (0.70-1.30); GFR AFRICAN AMERICAN 38 ML/MIN (>=60); GFR NON AFRICAN AMERICAN 33 ML/MIN (>=60); GLUCOSE, SERUM 128 MG/DL (60-99); SODIUM, SERUM 142 MMOL/L (135-148)
[2016-11-12 06:10] LABS: PHOSPHORUS, SERUM 2.3 MG/DL (2.5-4.5)
[2016-11-12 13:21] LABS: WBC (NOT ORDERED) (RFLEX) > 182 (0-5)
[2016-11-13 05:40] LABS: BASOPHILS 0.3 %; BASOPHILS ABSOLUTE 0.03 10/3/uL (0.0-0.16); EOSINOPHILS 3.4 %; EOSINOPHILS ABSOLUTE 0.38 10/3/uL (0.0-0.53); HEMATOCRIT 38.2 % (40.0-51.0); HEMOGLOBIN 12.9 g/dL (13.6-17.8); IMMATURE GRANULOCYTES 0.3 %; IMMATURE GRANULOCYTES ABSOLUTE 0.03 10/3/uL (0.0-0.11); LYMPHOCYTES ABSOLUTE 1.21 10/3/uL (0.67-4.30); MEAN CORPUS HGB CONC 33.8 g/dL (32.0-36.0); MEAN CORPUSCULAR HEMOGLOB 31.5 pg (26.0-34.0); MEAN CORPUSCULAR VOLUME 93.2 fL (80-100); MEAN PLATELET VOLUME 12.5 fL (9.2-13.0); MONOCYTES 5.7 %; MONOCYTES ABSOLUTE 0.63 10/3/uL (0.21-1.20); NEUTROPHILS 79.3 %; NEUTROPHILS ABSOLUTE 8.74 10/3/uL (2.02-8.40); PLATELET COUNT 123 10/3/uL (150-400); RBC DISTRIBUTION WIDTH 14.1 % (12.0-16.0)
[2016-11-13 05:41] LABS: MANUAL DIFF NO %
[2016-11-13 05:46] LABS: BUN (BLOOD UREA NITROGEN) 29 MG/DL (6-23); CALCIUM, SERUM 8.3 MG/DL (8.5-10.4); CHLORIDE, SERUM 110 MMOL/L (96-112); CO2 (CARBON DIOXIDE) 24 MMOL/L (24-34); CREATININE 1.73 MG/DL (0.70-1.30); GFR AFRICAN AMERICAN 41 ML/MIN (>=60); GFR NON AFRICAN AMERICAN 36 ML/MIN (>=60); GLUCOSE, SERUM 111 MG/DL (60-99); POTASSIUM, SERUM 4.1 MMOL/L (3.5-5.3); SODIUM, SERUM 142 MMOL/L (135-148)
[2016-11-13] MEDS ORDERED: CIP5 PO (10:08)
[2017-02-18] MEDS ORDERED: FLOMAX4 PO (15:14)
[2017-02-19] MEDS ORDERED: ASAB PO (08:24)
[2017-03-27] MEDS ORDERED: ULTRAM50 PO (08:50)
[2017-03-27] MEDS ORDERED: LEVAQUIN750 MG PO (08:50)
[2017-03-27] MEDS ORDERED: DSS PO (08:53)
== END 2016-11-13 11:12 | disposition home or self-care (01) | DRG 863 ==
LOC: ER 18:15 → 4SO 21:41
PROVIDERS: Emergency Medicine; Hospitalist; Internal Medicine
DX: T81.4XXA Infection following a procedure, initial encounter (principal); N17.9 Acute kidney failure, unspecified; N39.0 Urinary tract infection, site not specified; I48.2 Chronic atrial fibrillation; T80.29XA Infection following other infusion, transfusion and therapeutic injection, initial encounter; I50.22 Chronic systolic (congestive) heart failure; I13.0 Hypertensive heart and chronic kidney disease with heart failure and stage 1 through stage 4 chronic kidney disease, or unspecified chronic kidney disease; C67.9 Malignant neoplasm of bladder, unspecified; B96.5 Pseudomonas (aeruginosa) (mallei) (pseudomallei) as the cause of diseases classified elsewhere; Z95.0 Presence of cardiac pacemaker; Z79.01 Long term (current) use of anticoagulants; I34.0 Nonrheumatic mitral (valve) insufficiency; E78.00 Pure hypercholesterolemia, unspecified; N18.3 Chronic kidney disease, stage 3 (moderate); Z87.891 Personal history of nicotine dependence
CPT/HCPCS: 51720; 80048; 80053; 80069; 81001; 82550; 82553; 82570; 83735; 83880; 84300; 84443; 84484; 85025; 85610; 85730; 87015; 87040; 87077; 87086; 87116; 87186; 93005; 99285; A9270-GY; G0378; J3370